=== PATIENT | female | born 2000 | race Caucasian/White ===

== ENCOUNTER → 2018-04-25 | Outpatient (CLI) | payer BC | LOC: BMCIMAGING 16:30 | PROVIDERS: ATTEND Family Medicine | DX: S72.061A Displaced articular fracture of head of right femur, initial encounter for closed fracture (principal) ==

== ENCOUNTER → 2018-05-05 | Outpatient (CLI) | payer BC, OTHER | LOC: BMCIMAGING 14:54 | PROVIDERS: ATTEND Orthopaedic Surgery Hand Surgery | DX: S52.501D Unspecified fracture of the lower end of right radius, subsequent encounter for closed fracture with routine healing (principal) ==